=== PATIENT | female | born 1945 | race Caucasian/White ===

== ENCOUNTER 2016-08-27 16:07 | Emergency (ER) | payer MEDICARE, BC ==
[~2016-08-27] VITALS: Ht 167.6 cm; Wt 64.6 kg
[2016-08-27] MEDS ORDERED: SODIUM CHLORIDE FLUSH 10ML SYR IVF ONE (16:30)
[2016-08-27] MEDS ORDERED: ONDANSETRON 2MG/ML, 2ML IVPush ONE (16:30)
[2016-08-27] MEDS ORDERED: ATEN25TA PO (16:44)
[2016-08-27] MEDS ORDERED: STATIN MED PO (16:44)
[2016-08-27] MEDS ORDERED: ONDANSETRON 2MG/ML, 2ML ONE (17:06)
[2016-08-27] MEDS ORDERED: MORPHINE SULFATE 4 MG/ML, 1ML ONE ×2 (17:06→17:40)
[2016-08-27] MEDS: MORPHINE SULFATE 4 MG/ML, 1ML IVPush PRN ×2 (17:10→17:45)
[2016-08-27] MEDS ORDERED: LIDOCAINE 1%-EPI 1:100K, 20ML INFIL ONE (17:30)
[2016-08-27] MEDS ORDERED: PROPOFOL 10 MG/ML, 20ML ONE (18:15)
[2016-08-27] MEDS ORDERED: BACITRACIN ZINC OINT 500U/GM, 0.9 GM ONE (19:29)
[2016-08-27 20:31] VITALS: BP 112/65
== END 2016-08-27 20:34 | disposition home or self-care (01) ==
LOC: ED 20:03
DX: S52.552A Other extraarticular fracture of lower end of left radius, initial encounter for closed fracture (principal); E11.9 Type 2 diabetes mellitus without complications; I10 Essential (primary) hypertension; W19.XXXA Unspecified fall, initial encounter; Y93.89 Activity, other specified; Y92.89 Other specified places as the place of occurrence of the external cause; Y99.8 Other external cause status
CPT/HCPCS: 25605; 73100; 73110; 96374; 96375; 96376; 99152; 99285; J2405